=== PATIENT | female | born 1995 | race Caucasian/White ===

== ENCOUNTER → 2021-08-14 09:55 | Outpatient (BNVA) | payer OTHER, SELFPAY | PROVIDERS: PCP Internal Medicine; Visit Provider Nurse Practitioner Family | DX: G93.1 Anoxic brain damage, not elsewhere classified (principal); S06.9X9S Unspecified intracranial injury with loss of consciousness of unspecified duration, sequela; F02.80 Dementia in other diseases classified elsewhere, unspecified severity, without behavioral disturbance, psychotic disturbance, mood disturbance, and anxiety; R25.2 Cramp and spasm; R51.9 Headache, unspecified | CPT/HCPCS: 99212 ==

== ENCOUNTER → 2022-02-12 08:49 | Outpatient (BNVA) | payer OTHER, SELFPAY | PROVIDERS: PCP Internal Medicine; Visit Provider Nurse Practitioner Family | DX: R25.2 Cramp and spasm (principal); G93.1 Anoxic brain damage, not elsewhere classified; S06.9X9S Unspecified intracranial injury with loss of consciousness of unspecified duration, sequela; F02.80 Dementia in other diseases classified elsewhere, unspecified severity, without behavioral disturbance, psychotic disturbance, mood disturbance, and anxiety; Z79.899 Other long term (current) drug therapy | CPT/HCPCS: 99212 ==

== ENCOUNTER → 2022-06-21 07:38 | Outpatient (BNVA) | payer OTHER, SELFPAY | PROVIDERS: PCP Internal Medicine; Visit Provider Nurse Practitioner Family | DX: G93.1 Anoxic brain damage, not elsewhere classified (principal); S06.9XAS Unspecified intracranial injury with loss of consciousness status unknown, sequela; F02.80 Dementia in other diseases classified elsewhere, unspecified severity, without behavioral disturbance, psychotic disturbance, mood disturbance, and anxiety; X58.XXXS Exposure to other specified factors, sequela; R25.2 Cramp and spasm | CPT/HCPCS: 99212 ==

== ENCOUNTER → 2022-12-20 07:40 | Outpatient (BNVA) | payer OTHER, SELFPAY | PROVIDERS: PCP Physician Assistant; Visit Provider Nurse Practitioner Family | DX: G93.1 Anoxic brain damage, not elsewhere classified (principal); R25.2 Cramp and spasm; S06.9X9S Unspecified intracranial injury with loss of consciousness of unspecified duration, sequela; F02.80 Dementia in other diseases classified elsewhere, unspecified severity, without behavioral disturbance, psychotic disturbance, mood disturbance, and anxiety | CPT/HCPCS: 99212 ==

== ENCOUNTER 2022-12-20 07:45 | Outpatient (AMB) | payer OTHER, SELFPAY ==
[2022-12-20 07:45] VITALS: BP 110/66; PULSE 90; O2SAT 100
--- NOTE | 2022-12-20 07:45 | MHC.OFFVIS ---
Intake Vital Signs 12/20/22 07:45 Height 5 ft 2 in BMI Reason not done Patient refused/unable BP 110/66 Blood Pressure Location Rt brachial Position Sitting Pulse 90 Pulse Source Pulse Oximeter Pulse Oximetry (%) 100 Oxygen Delivery Method Room Air Intake Visit Reasons: 6m Follow up - Confirmed Intake Note: Pt presents as a 6m f/u. The guardian and director case management have a meeting this week If she can make a letter to help get a different wheel chair. When asked how pt is feeling she stated sometimes just the back pain. Cullet Crusher Required: No Accompanied by: Mother Allergies No Known Allergies Allergy (Verified 12/20/22 07:54) Medication List - Last Reconciled 12/20/22 by RITA Roque cholecalciferol (vitamin D3) 25 mcg PO DAILY docusate sodium 100 mg PO BID ketoconazole 2% topical 2XW mometasone 0.1% topical multivitamin 1 tab PO DAILY naproxen (EC-Naproxen) 500 mg PO BID PRN onabotulinumtoxinA (Botox) IM [id number] pregabalin 25 mg PO TID 30 days spironolactone 100 mg PO DAILY tizanidine 1 cap bid and 2 caps qhs orally PRN; HPI HPI Comments History of Present Illness Details 27-yr-old female presents for f/u visit. Pt denies any significant interval medical changes. Pt reports her right hand is healing well. She is working w/ PT still. She has increased ability to do some ADLs herself. She continues to have intermittent RUE spasms- which can make it difficult to eat at times. She is not intersted in increasing her Tizanidine at this time. Her botox was held as she had the surgery. She is scheduled for left hand repair in January. She continues to have intermittent back pain. Pregabalin helps- she does not want to try increasing at this time. She does have a PT that does walking and stretching w/ her- but notes she has not mentioned the back pain to this PT. She is hoping to be able to be fitted for a new transport chair that will fit better and allow her to be transported over a variety of surfaces (such as the uneven surface of a grassy park field), as her current transport chair is starting to fail. [facility] Medical History DVT (deep vein thrombosis) in Surgical History Hx of hand surgery Hx of tracheostomy Social History (Updated 12/20/22 @ 07:56 by Lea Alejandra CMA) Alcohol intake: never Patient Tobacco Use Status: Never used Tobacco Review of Systems Const All systems reviewed & are unremarkable except as noted in HPI and below Physical Exam Vital Signs: Last Vital Signs Pulse 90 12/20/22 07:45 BP 110/66 12/20/22 07:45 Pulse Ox 100 12/20/22 07:45 Oxygen Delivery Method Room Air 12/20/22 07:45 Const General: cooperative and no acute distress HEENT Head: Yes normocephalic Resp Effort & Inspection: normal respiratory effort and able to speak in complete sentences Neuro Other: Right forearm/hand increased finger ROM. LUE hand contracture with MCPs raised and fingers postured in extension. Speech soft. Speech clear today. Sitting upright in w/c. General: patient oriented x3 and CN's II-XI intact bilaterally Psych Appearance: grossly normal Speech and movement: Clear speech present Affect: normal affect Attitude: cooperative Assessment & Plan Assessment & Plan (1) Anoxic brain injury: Code(s): G93.1 - Anoxic brain damage, not elsewhere classified (2) Spasticity: Code(s): R25.2 - Cramp and spasm (3) Major neurocognitive disorder due to traumatic brain injury: Code(s): S06.9X9S - Unspecified intracranial injury with loss of consciousness of unspecified duration, sequela; F02.80 - Dementia in other diseases classified elsewhere, unspecified severity, without behavioral disturbance, psychotic disturbance, mood disturbance, and anxiety Plan Pt would benefit from being fitted with for a new transport wheel chair with larger wheels, which would allow pt to access a variety of locations including locations with uneven surfaces (such as the park, grassy [place]). Pt would also benefit from having the transport chair having longer arm rests, longer seat back, deeper seat, and cushioned back and seat, which would better accommodate pt's proportions to improve pt's overall quality life by improving pt's comfort level, decreasing pt's back pain, and allowing pt to spend more time in outdoor settings. Continue Tizanidine 2mg bid and 4mg qhs. Continue Pregabalin 25mg tid. F/u w/ ortho as scheduled. Continue day program. Future considerations: PT specifically for back pain,. Revisit trialing the Baclofen pump to better manage her spasticity symptoms. f/u in 6 months or sooner prn. Coding Level of Care Code Est Pt Level 4 (40290) Diagnoses Anoxic brain injury G93.1 Spasticity R25.2 Major neurocognitive disorder due to traumatic brain injury S06.9X9S; F02.80
== END 2022-12-20 08:39 | disposition home or self-care (01) ==
PROVIDERS: PCP Physician Assistant; Visit Provider Nurse Practitioner Family
DX: G93.1 Anoxic brain damage, not elsewhere classified (principal); R25.2 Cramp and spasm; S06.9X9S Unspecified intracranial injury with loss of consciousness of unspecified duration, sequela; F02.80 Dementia in other diseases classified elsewhere, unspecified severity, without behavioral disturbance, psychotic disturbance, mood disturbance, and anxiety
CPT/HCPCS: 99214

== ENCOUNTER → 2023-06-19 07:35 | Outpatient (BNVA) | payer OTHER, SELFPAY | PROVIDERS: PCP Physician Assistant; Visit Provider Nurse Practitioner Family | DX: F32.A Depression, unspecified (principal); F02.80 Dementia in other diseases classified elsewhere, unspecified severity, without behavioral disturbance, psychotic disturbance, mood disturbance, and anxiety; R25.2 Cramp and spasm; R51.9 Headache, unspecified; G93.1 Anoxic brain damage, not elsewhere classified; S06.9X9S Unspecified intracranial injury with loss of consciousness of unspecified duration, sequela | CPT/HCPCS: 99212 ==

== ENCOUNTER 2023-10-21 07:27 | Outpatient (AMB) | payer OTHER, SELFPAY ==
--- NOTE | 2023-10-21 07:44 | MHC.OFFVIS ---
Vital Signs 10/21/23 07:50 Height 5 ft 2 in Pulse 83 Pulse Source Pulse Oximeter Pulse Oximetry (%) 100 Oxygen Delivery Method Room Air Intake Visit Reasons: 4m follow up-CONF Intake Note: Patient presents for 4 month follow up. no concerns today. Allergies No Known Allergies Allergy (Verified 10/21/23 07:50) Medication List - Last Reconciled 10/21/23 by RITA Roque cholecalciferol (vitamin D3) 25 mcg PO DAILY docusate sodium 100 mg PO BID ketoconazole 2% topical 2XW mometasone 0.1% topical multivitamin 1 tab PO DAILY naproxen (EC-Naproxen) 500 mg PO BID PRN onabotulinumtoxinA (Botox) IM [id number] pregabalin 25 mg PO TID 30 days spironolactone 100 mg PO DAILY tizanidine 1 cap bid and 2 caps qhs orally PRN; HPI Comments Details: 28-yr-old female presents for f/u visit. Pt denies any significant interval medical changes. Pt reports her mood is better. Her day program moved to a new location, which is bigger. This now allows her to move around more, so she is more comfortable there. She had Right hand Botox tx last week in [place]- as right 2nd finger was too extended. This has been helpful. She is working w/ hand therapist and is starting to use adaptive equipment to help feed herself. Mom notes she is a bit hesitant to feed herself, as she does not want to make a mess. Her spasms are stable,. States only increased when she is upset or stressed. Has occasional headaches. Feels like a weight on her head a/w some photophobia and osmophobia. Tylenol helps. PFSH Surgical History Hx of hand surgery Hx of tracheostomy Social History Alcohol intake: never Patient Tobacco Use Status: Never used Tobacco Review of Systems Const All systems reviewed & are unremarkable except as noted in HPI and below Physical Exam Vital Signs: Last Vital Signs Pulse 83 10/21/23 07:50 Pulse Ox 100 10/21/23 07:50 Oxygen Delivery Method Room Air 10/21/23 07:50 Const General: cooperative and no acute distress HEENT Head: Yes normocephalic Resp Effort & Inspection: normal respiratory effort and able to speak in complete sentences Neuro Other: A&O, responding appropriately. Improved hand and wrist range of motion- still has lucy finger flexion. Pt can know hold hands together w/ fingers interlaced. Sitting upright in w/c. Pleasant affect. Psych Appearance: grossly normal Affect: normal affect Attitude: cooperative Assessment & Plan Assessment & Plan (1) Spasticity: Code(s): R25.2 - Cramp and spasm Category: Medical (2) Major neurocognitive disorder due to traumatic brain injury: Code(s): S06.9X9S - Unspecified intracranial injury with loss of consciousness of unspecified duration, sequela; F02.80 - Dementia in other diseases classified elsewhere, unspecified severity, without behavioral disturbance, psychotic disturbance, mood disturbance, and anxiety Category: Medical (3) Anoxic brain injury: Code(s): G93.1 - Anoxic brain damage, not elsewhere classified Category: Medical (4) Headache: Code(s): R51.9 - Headache, unspecified Category: Medical (5) Depression: Comment: Imporved Code(s): F32.A - Depression, unspecified Category: Medical (6) Migraine without aura: Code(s): G43.009 - Migraine without aura, not intractable, without status migrainosus Category: Medical Plan Mood is improved. Pt and mom do not feel therpay is needed at this time. Will monitor. Future considerations- SSRI, tehrapy. ? Continue Tizanidine 2mg bid and 4mg qhs. Continue Pregabalin 25mg tid. Continue hand tx. Encouraged pt to use her hands as much as possible- use the adaptive equipment- mom plans to obtain a set for home. F/u w/ ortho as scheduled. Future considerations: Revisit Baclofen pump to better manage her spasticity symptoms. For headache: Tylenol prn. If Tylenol loses effectiveness, consider gepant trial. Would be hesitant to use Triptan in setting of h/o hypoxic brain injury. ? f/u in 6 months or sooner prn. Coding Level of Care Code Est Pt Level 4 (22045) Diagnoses Spasticity R25.2 Major neurocognitive disorder due to traumatic brain injury S06.9X9S; F02.80 Anoxic brain injury G93.1 Headache R51.9 Depression F32.A Migraine without aura G43.009
[2023-10-21 07:50] VITALS: PULSE 83; O2SAT 100
== END 2023-10-21 08:29 | disposition home or self-care (01) ==
PROVIDERS: PCP Physician Assistant; Visit Provider Nurse Practitioner Family
DX: R25.2 Cramp and spasm (principal); S06.9X9S Unspecified intracranial injury with loss of consciousness of unspecified duration, sequela; F02.80 Dementia in other diseases classified elsewhere, unspecified severity, without behavioral disturbance, psychotic disturbance, mood disturbance, and anxiety; G93.1 Anoxic brain damage, not elsewhere classified; R51.9 Headache, unspecified; F32.A Depression, unspecified; G43.009 Migraine without aura, not intractable, without status migrainosus
CPT/HCPCS: 99214

== ENCOUNTER → 2023-10-21 07:27 | Outpatient (BNVA) | payer OTHER, SELFPAY | PROVIDERS: PCP Physician Assistant; Visit Provider Nurse Practitioner Family | DX: R25.2 Cramp and spasm (principal); G93.1 Anoxic brain damage, not elsewhere classified; R51.9 Headache, unspecified; F32.A Depression, unspecified; G43.009 Migraine without aura, not intractable, without status migrainosus; S06.9X9S Unspecified intracranial injury with loss of consciousness of unspecified duration, sequela; F02.80 Dementia in other diseases classified elsewhere, unspecified severity, without behavioral disturbance, psychotic disturbance, mood disturbance, and anxiety | CPT/HCPCS: 99212 ==

== ENCOUNTER 2023-11-25 12:29 | Outpatient (AMB) | payer OTHER, SELFPAY ==
--- NOTE | 2023-11-25 12:46 | MHC.OFFVIS ---
Vital Signs 11/25/23 12:46 Height 5 ft 2 in Intake Visit Reasons: Follow Up Intake Note: Patient presents for follow up. patient following up on some concerns. Allergies No Known Allergies Allergy (Verified 11/25/23 12:52) Medication List - Last Reconciled 11/25/23 by RITA Roque cholecalciferol (vitamin D3) 25 mcg PO DAILY docusate sodium 100 mg PO BID ketoconazole 2% topical 2XW mometasone 0.1% topical multivitamin 1 tab PO DAILY naproxen (EC-Naproxen) 500 mg PO BID PRN onabotulinumtoxinA (Botox) IM [id number] pregabalin 25 mg PO TID 30 days spironolactone 100 mg PO DAILY tizanidine 1 cap bid and 2 caps qhs orally PRN; HPI Comments Details: 28-yr-old female presents for urgent f/u visit, requested by pt's mother. Pt's mother called and reported that pt has been confused, hallucinating, and having episodes of yelling loudly. Deisy pt is convinced that people at her longterm are using drugs and stealing from her, but that this is not happening. PCP's office started her on hydralazine bid two weeks ago, but this has not helped. Visit initially conducted with pt alone with presence of our diagnostic medical sonographer. Pt is very tearful, sobbing at times, having difficulty talking. In time, pt verbalized that no one believes her because she has had a head injury. She reports she is concerned about her day program- she states that some but the majority of the staff are inviting their friends into the facility, and vaping. She states the staff then become jittery and then leave for a few minutes, but then come back. She feels the perl programmer becomes loopy because he is exposed to the residual smoke in the air from the vaping. She believes the staff have damaged the cameras. She believes they are vaping methadone. She feels that she has felt loopy herself after this exposure. She denies feeling unsafe in the program or that anyone is physically harming her. She states she does not let anyone touch her at the program. Pt is also concerned about her mother. She states that her mother does not believe her about her concerns regarding the program. She also states that her mother has a new male friend who visits over the last few months- she does not care for him. She states her mother does not ask her how her day was at the program. She states once home, she just spends time by herself. She denies feeling unsafe at home. States no one is hurting her at home. Pt denies any recent fevers, headaches, body aches. [employer]. [facility] Surgical History Hx of hand surgery Hx of tracheostomy Social History Alcohol intake: never Patient Tobacco Use Status: Never used Tobacco Review of Systems Const All systems reviewed & are unremarkable except as noted in HPI and below Physical Exam Const General: cooperative and no acute distress Resp Effort & Inspection: normal respiratory effort and able to speak in complete sentences Neuro Other: A&O. Sad, weepy. Consistent in responses. Improved hand and wrist range of motion- still has lucy finger flexion.. Sitting upright in w/c. General: CN's II-XI intact bilaterally Psych Appearance: grossly normal Mental Status: mental status grossly normal Speech and movement: Normal speech and movement present Affect: normal affect Attitude: cooperative Assessment & Plan Assessment & Plan (1) Mood changes: Code(s): R45.86 - Emotional lability Category: Medical (2) Depression: Comment: Improved. Pt currently denies depression. Code(s): F32.A - Depression, unspecified Category: Medical (3) Anoxic brain injury: Code(s): G93.1 - Anoxic brain damage, not elsewhere classified Category: Medical (4) Major neurocognitive disorder due to traumatic brain injury: Code(s): S06.9X9S - Unspecified intracranial injury with loss of consciousness of unspecified duration, sequela; F02.80 - Dementia in other diseases classified elsewhere, unspecified severity, without behavioral disturbance, psychotic disturbance, mood disturbance, and anxiety Category: Medical (5) Anoxic brain injury: Code(s): G93.1 - Anoxic brain damage, not elsewhere classified Category: Medical (6) Major neurocognitive disorder due to traumatic brain injury: Code(s): S06.9X9S - Unspecified intracranial injury with loss of consciousness of unspecified duration, sequela; F02.80 - Dementia in other diseases classified elsewhere, unspecified severity, without behavioral disturbance, psychotic disturbance, mood disturbance, and anxiety Category: Medical Plan Will check labs, brain MRI w/wo, EEG for secondary etiologies of mood and behavior changes. Will refer to psychiatry and psychology. Order written for escitalopram 5mg qd- may help pt's mood liability- pt is hesitant to try this as she is worried it will make her not herself- but states she will consider trying it. However, discussed w/ pt and mother that we would need to f/u on pt's concerns regarding her day program. Pt asks that the day program not be made aware that pt has made a complaint. Message was also left today for pt's guardian, Esther. This freelance writer contacted [facility], who provided information for pt's care nurse rn, Brenden Castro. This freelance writer updated care nurse rn via phone regarding pt's concerns and today's visit. She stated that she will f/u w/ her supervisior and also plan for an unannounced spot check of pt's day program- and update us afterwards. international logistics coordinator, Brenden CastroPhone ) (note pt will have a new care nurse rn in/around Dec 2023). Orders: Orders Complete Blood Count Auto Diff Today F32.A - Depression, unspecified, R25.2 - Cramp and spasm, R42 - Dizziness and giddiness, R45.86 - Emotional lability, R51.9 - Headache, unspecified HIV Ab/Ag Today F32.A - Depression, unspecified, R25.2 - Cramp and spasm, R42 - Dizziness and giddiness, R45.86 - Emotional lability, R51.9 - Headache, unspecified MR head/brain wo/w con Today G93.1 - Anoxic brain damage, not elsewhere classified, R42 - Dizziness and giddiness, R44.3 - Hallucinations, unspecified, R51.9 - Headache, unspecified AMB 14 Panel Urine Drug Screen Today Z51.81 - Encounter for therapeutic drug level monitoring EEG electroencephalogram Today F02.80 - Dementia in other diseases classified elsewhere, unspecified severity, without behavioral disturbance, psychotic disturbance, mood disturbance, and anxiety, G93.1 - Anoxic brain damage, not elsewhere classified, R44.3 - Hallucinations, unspecified, S06.9X9S - Unspecified intracranial injury with loss of consciousness of unspecified duration, sequela Folate Today R42 - Dizziness and giddiness, R44.3 - Hallucinations, unspecified, R51.9 - Headache, unspecified Comprehensive Met. Panel Today F32.A - Depression, unspecified, R25.2 - Cramp and spasm, R42 - Dizziness and giddiness, R45.86 - Emotional lability, R51.9 - Headache, unspecified TSH reflex Free T4 Today F32.A - Depression, unspecified, R25.2 - Cramp and spasm, R42 - Dizziness and giddiness, R45.86 - Emotional lability, R51.9 - Headache, unspecified Vitamin B12 and Folate Today F32.A - Depression, unspecified, R25.2 - Cramp and spasm, R42 - Dizziness and giddiness, R45.86 - Emotional lability, R51.9 - Headache, unspecified Methylmalonic Acid Today F32.A - Depression, unspecified, R25.2 - Cramp and spasm, R42 - Dizziness and giddiness, R45.86 - Emotional lability, R51.9 - Headache, unspecified Homocysteine Today F32.A - Depression, unspecified, R25.2 - Cramp and spasm, R42 - Dizziness and giddiness, R45.86 - Emotional lability, R51.9 - Headache, unspecified Erythrocyte Sedimentation Rate Today F32.A - Depression, unspecified, R25.2 - Cramp and spasm, R42 - Dizziness and giddiness, R45.86 - Emotional lability, R51.9 - Headache, unspecified Hemoglobin A1c Today F32.A - Depression, unspecified, R25.2 - Cramp and spasm, R42 - Dizziness and giddiness, R45.86 - Emotional lability, R51.9 - Headache, unspecified Rheumatoid Factor Today F32.A - Depression, unspecified, R25.2 - Cramp and spasm, R42 - Dizziness and giddiness, R45.86 - Emotional lability, R51.9 - Headache, unspecified Syphilis Screen Today F32.A - Depression, unspecified, R25.2 - Cramp and spasm, R42 - Dizziness and giddiness, R45.86 - Emotional lability, R51.9 - Headache, unspecified CRP High Sensitivity Today F32.A - Depression, unspecified, R25.2 - Cramp and spasm, R42 - Dizziness and giddiness, R45.86 - Emotional lability, R51.9 - Headache, unspecified UA CC w/rflx Micro + Cult Today F32.A - Depression, unspecified, R25.2 - Cramp and spasm, R42 - Dizziness and giddiness, R45.86 - Emotional lability, R51.9 - Headache, unspecified Referrals Psychiatry Referral F02.80 - Dementia in other diseases classified elsewhere, unspecified severity, without behavioral disturbance, psychotic disturbance, mood disturbance, and anxiety, F32.A - Depression, unspecified, G93.1 - Anoxic brain damage, not elsewhere classified, R44.3 - Hallucinations, unspecified, R45.86 - Emotional lability, S06.9X9S - Unspecified intracranial injury with loss of consciousness of unspecified duration, sequela Medications: New escitalopram oxalate 5 mg PO DAILY 30 tabs 3RF 30 days Coding Level of Care Code Est Pt Level 4 (44650) Diagnoses Mood changes R45.86 Depression F32.A Anoxic brain injury G93.1 Major neurocognitive disorder due to traumatic brain injury S06.9X9S; F02.80
== END 2023-11-25 14:01 | disposition home or self-care (01) ==
PROVIDERS: PCP Physician Assistant; Visit Provider Nurse Practitioner Family
DX: R45.86 Emotional lability (principal); F32.A Depression, unspecified; G93.1 Anoxic brain damage, not elsewhere classified; S06.9X9S Unspecified intracranial injury with loss of consciousness of unspecified duration, sequela; F02.80 Dementia in other diseases classified elsewhere, unspecified severity, without behavioral disturbance, psychotic disturbance, mood disturbance, and anxiety
CPT/HCPCS: 99214

== ENCOUNTER → 2023-11-25 12:29 | Outpatient (BNVA) | payer OTHER, SELFPAY | PROVIDERS: PCP Physician Assistant; Visit Provider Nurse Practitioner Family | DX: R45.86 Emotional lability (principal); F32.A Depression, unspecified; G93.1 Anoxic brain damage, not elsewhere classified; S06.9X9S Unspecified intracranial injury with loss of consciousness of unspecified duration, sequela; F02.80 Dementia in other diseases classified elsewhere, unspecified severity, without behavioral disturbance, psychotic disturbance, mood disturbance, and anxiety | CPT/HCPCS: 99212 ==

== ENCOUNTER 2024-05-15 07:42 | Outpatient (AMB) | payer OTHER, SELFPAY ==
[2024-05-15 07:56] VITALS: BP 100/60; PULSE 87; O2SAT 100; BMI 22.9
--- NOTE | 2024-05-15 07:56 | A.OFFVIS_ITS ---
Vital Signs 05/15/24 07:56 Height 5 ft 2 in Weight 125 lb BMI 22.9 BP 100/60 Blood Pressure Location Rt brachial Position Sitting Pulse 87 Pulse Oximetry (%) 100 Oxygen Delivery Method Room Air Intake Visit Reasons: Follow up Beer Cooler Required: No Accompanied by: Mother Allergies No Known Allergies Allergy (Verified 05/15/24 08:01) Do you need a note to return to daycare/school/sports/work: No HPI Comments Details: 29-yr-old female presents for urgent f/u of spasticity and headache in setting of TBI. Pt is accompanied by her mother. Overall, patient and patient's mother state that she is doing much better. Her mood is much better since starting escitalopram and hydroxyzine. She continues to go to her program. She has a new shelter case manager. Pt has been doing PT for her hands. Dr Fowler, at [facility], held the last hand botox injection until pt can be fitted for nocturnal braces. Dr fowler has given her a prescription for nocturnal hand braces. Mom plans to give the splint order to her PT. Denies any bothersome muscle spasms. But mom states she can have some hand spasms when eating. Mom had tried giving her tizanidine at 2am, to help with eating breakfast but it made her too sleepy during the day. She is having mild headaches about twice a week, and a strong headache once a month. The mild headache moves up from her neck and moves up the back of her head a/w difficulty moving her head and sleepiness. States duration is not too long . The more severe headache is similar but it is stronger and mom states she just wants everything to be shut down and rest. Naproxen does not seem to eb helping anymore. She has also started [facility] eval & tx. They have referred her to ENT- has an appt in the summer. PFSH Surgical History Hx of hand surgery Hx of tracheostomy Social History Alcohol intake: never Patient Tobacco Use Status: Never used Tobacco Physical Exam Vital Signs: Last Vital Signs Pulse 87 05/15/24 07:56 BP 100/60 05/15/24 07:56 Pulse Ox 100 05/15/24 07:56 Oxygen Delivery Method Room Air 01/03/25 07:56 BMI result Body Mass Index 22.9 Const General: cooperative and no acute distress Resp Effort & Inspection: normal respiratory effort and able to speak in complete sentences Neuro Other: A&O. Improved hand and wrist range of motion- lucy finger flexion.. Sitting upright in w/c. General: CN's II-XI intact bilaterally Psych Appearance: grossly normal Speech and movement: Normal speech and movement present Affect: normal affect Attitude: cooperative Assessment & Plan Assessment & Plan (1) Depression: Comment: Improved. Pt currently denies depression. Code(s): F32.A - Depression, unspecified Category: Medical (2) Anoxic brain injury: Code(s): G93.1 - Anoxic brain damage, not elsewhere classified Category: Medical (3) Major neurocognitive disorder due to traumatic brain injury: Code(s): S06.9X9S - Unspecified intracranial injury with loss of consciousness of unspecified duration, sequela; F02.80 - Dementia in other diseases classified elsewhere, unspecified severity, without behavioral disturbance, psychotic disturbance, mood disturbance, and anxiety Category: Medical (4) Major neurocognitive disorder due to traumatic brain injury: Code(s): S06.9X9S - Unspecified intracranial injury with loss of consciousness of unspecified duration, sequela; F02.80 - Dementia in other diseases classified elsewhere, unspecified severity, without behavioral disturbance, psychotic disturbance, mood disturbance, and anxiety Category: Medical (5) Migraine without aura: Code(s): G43.009 - Migraine without aura, not intractable, without status migrainosus Category: Medical Plan For mood: Reviewed 12/13/2023 brain MRI w/wo,-no acute findings, and global parenchymal volume loss and compensatory ventricular dilation, greater than expected for patient age. Reviewed 11/15/2023 EEG-unremarkable. Reviewed November labs-unremarkable. Continue escitalopram 5mg qd- as patient has had positive effect in terms of mood from use. Continue supportive care, day program. For headache: Start diclofenac 50 mg p.o. b.i.d. p.r.n. For spasticity: Continue pregabalin 25 mg p.o. t.i.d.. Will follow-up upon review of above and patient to follow-up in clinic in 6 months or sooner prn. Medications: New diclofenac potassium 50 mg PO Q12H PRN 30 tabs 6RF headache 30 days Refilled pregabalin 25 mg PO TID 90 caps 5RF 30 days escitalopram oxalate 5 mg PO DAILY 30 tabs 6RF 30 days Coding Level of Care Code Est Pt Level 4 (21416) Diagnoses Depression F32.A Anoxic brain injury G93.1 Major neurocognitive disorder due to traumatic brain injury S06.9X9S; F02.80 Migraine without aura G43.009
== END 2024-05-15 08:47 | disposition home or self-care (01) ==
PROVIDERS: PCP Physician Assistant; Visit Provider Nurse Practitioner Family
DX: F32.A Depression, unspecified (principal); G93.1 Anoxic brain damage, not elsewhere classified; S06.9X9S Unspecified intracranial injury with loss of consciousness of unspecified duration, sequela; F02.80 Dementia in other diseases classified elsewhere, unspecified severity, without behavioral disturbance, psychotic disturbance, mood disturbance, and anxiety; G43.009 Migraine without aura, not intractable, without status migrainosus
CPT/HCPCS: 99214

== ENCOUNTER 2024-11-24 07:43 | Outpatient (AMB) | payer OTHER, SELFPAY ==
--- OUTSIDE RECORDS SUMMARY | 2024-11-24 07:46 | XMS_ITS | Clinical Summary ---
Author Organization [facility] Address [address] [place] [address] Phone Care Team Providers Care Gas Attendant Name Role Phone Melony Tafoya Primary Care Provider + Allergies No known active allergies Medications hydrOXYzine HCL (ATARAX) 10 mg tablet Take 1 tablet (10 mg total) by mouth 3 (three) times a day. 270 tablet 1 5 Active Vitamin D3 25 mcg (1,000 unit) tablet Take 1 tablet (1,000 Units total) by mouth 1 (one) time each day. 90 tablet 3 5 Active escitalopram (LEXAPRO) 5 mg tablet Take 1 tablet (5 mg total) by mouth 1 (one) time each day. for 30 days Active pregabalin (LYRICA) 25 mg capsule Take 1 capsule (25 mg total) by mouth 3 (three) times a day. Max Daily Amount: 75 mg Active spironolactone (ALDACTONE) 50 mg tablet Take 1 tablet (50 mg total) by mouth 1 (one) time each day. 5 Active diclofenac (CATAFLAM) 50 mg tablet Take 1 tablet (50 mg total) by mouth 2 (two) times a day if needed (headaches). 5 Active tiZANidine (ZANAFLEX) 2 mg tablet TAKE 2 TABLETS BY MOUTH EVERY MORNING, 1 TABLET AT NOON AND 2 TABLETS EVERY EVENING NEEDED Active docusate sodium (COLACE) 100 mg capsule Take 1 capsule (100 mg total) by mouth 2 (two) times a day if needed. for constipation Active Active Problems Problem Noted Date Diagnosed Date Anoxic brain injury ([facility] V24, [facility] V28) 0 10/01/2024 Overview (10/01/2024): DX:Anoxic brain injury (HCC) Upcoming neuropsych evaluation Spastic quadriparesis ([facility] V24, [facility] V28) 10/01/2024 Overview (10/01/2024): Receiving botox therapy to all four extremities OT twice weekly PT twice weekly Enrolled in Service [employer] Program Deep vein thrombosis (DVT) ([facility] V24, [facility] V28) 10/01/2024 Traumatic brain injury ([facility] V24, [facility] V28 ) 10/01/2024 Dysmenorrhea 10/18/2022 Overview (10/01/2024): Last Assessment & Plan: We reviewed treatment options for dysmenorrhea including non-contraceptive benefits of hormonal contraception. Patient has history of DVT, therefore is not a candidate for COCs. We reviewed progestin-only options and common side effects of each. She is most interested in POPs. Pt counseled on expectations for irregular menstrual bleeding with use of POPs. All questions answered. Rx provided today. 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 02/12 Intrinsic muscle tightness 04/23/2021 Spasticity as late effect of cerebrovascular acc ident (CVA) 04/23/2021 Wheelchair dependence 10/17/2016 Acne 06/01/2014 Constipation 06/01/2014 Neurogenic bladder Overview (08/25/2024): DX:Neurogenic bladder Migraines Anxiety Hirsutism Encounters Date Type Department Care Team Description 10/13/2024 Telephone Internal Medicine - [address] [place] [address] Melony Tafoya PA DME(bed rails) 09/07/2024 Telephone Internal Medicine - [place] [address] [place] [address] Evelyne Richard MA Referral 08/25/2024 1:30 PM EDT Office Visit Internal Medicine [facility] [address] [facility] [address] [place] [address] Melony Tafoya PA Migraine without status migrainosus, not intractable, unspecified migraine type (Primary Dx); Spastic quadriplegia ([facility] V24, [facility] V28); Anxiety; Health care maintenance from Last 3 Months Surgical History Surgery Date Site/Laterality Comments OTHER SURGICAL HISTORY PROCEDURE: TRACHEOSTOMY INNER CANNULA OTHER SURGICAL HISTORY PROCEDURE: [place] EGD PERCUTANEOUS PLACEMENT GASTROSTOMY TUBE HAND SURGERY Right PROCEDURE: HISTORICAL HAND SURGERY Medical History Medical History Date Comments Anoxic brain injury ([facility] V24, [facility] V28) 10/01/2024 DX:Anoxic brain injury (HCC) DVT femoral (deep venous thr ombosis) with thrombophlebitis (CMS/HCC V24, CMS/HCC V28) DX:DVT femoral (deep venous thrombosis) with thrombophlebitis (HCC) Neurogenic bladder DX:Neurogenic bladder Migraines Spastic quadriplegia (CMS/ C V24, [facility] V28) Anxiety Hirsutism Family History Medical History Relation Name Comments Heart attack Maternal Grandfather Breast cancer Maternal Grandmother Breast cancer Other Mat cousin Colon cancer Uncle 1 maternal Colon cancer Uncle 2 maternal x2 Blindness Neg Hx Cataracts Neg Hx Cervical cancer Neg Hx Glaucoma Neg Hx Macular degeneration Neg Hx Ovarian cancer Neg Hx Prostate cancer Neg Hx Strabismus Neg Hx Relation Name Status Comments Father Alive Maternal Grandfather Maternal Grandmother Mother Alive Other Mat cousin Alive Uncle 1 Uncle 2 Social History Tobacco Use Types Packs/Day Years Used Date Smoking Tobacco: Never Smokeless Tobacco: Never Alcohol Use Standard Drinks/Week Comments No 0 (1 standard drink = 0.6 oz pur e alcohol) Housing Instability Answer Date Recorde d Are you worried that in the next 2 months you may not have stable housing? No 08/18/2024 Food Access & Nutrition Answer Date Rec orded Do you have access to a vari ety of food including fruits and vegetables? Yes 08/18/2024 Access to Healthcare Answer Date Record ed Within the last 3 months, ho w many times did you visit the emergency department for your medical care? 0 08/18/2024 Health Literacy Answer Date Recorded How often do you need to hav e someone help you when you read instructions, pamphlets, or other written material from your doctor or pharmacy? Always 08/18/2024 Caregiver: How often do you need to have someone help you when you read instructions, pamphlets, or other written material from your doctor or pharmacy? Not on file 08/18/2024 Transportation Answer Date Recorded Has the lack of transportati on kept you from meetings, work, or from getting things needed for daily living? No Has the lack of transportati on kept you from medical appointments or from getting medications? No 08/18/2024 Social Isolation Answer Date Recorded How often do you feel lonely or isolated from th ose around you? Never 08/18/2024 Food Risk Answer Date Recorded Within the past 12 months we worried whether our food would run out before we got money to buy more. Never true 08/18/2024 Within the past 12 months th e food we bought just didn't last and we didn't have money to get more. Never true 08/18/2024 Dependent Care Answer Date Recorded Do you need help finding or paying for care for your loved ones. For example, children's service worker or elderly care for an older adult? No 08/18/2024 Education Answer Date Recorded Do you think completing more education or training, like finishing a GED, going to college, or learning a trade, would be helpful for you? Unable to respond 08/18/2024 Employment and Income Answer Date Recor ded During the last four weeks, have you been actively looking for work? No 08/18/2024 Living Situation Answer Date Recorded What is your living situation? 0 08/18/2024 Comments No Sex and Gender Information Value Date Recorded Sex Assigned at Not on file Legal Sex Female 8:29 AM EST Gender Identity Not on file Sexual Orientation Not on file Obstetrics History Last Filed Vital Signs Vital Sign Reading Time Taken Comments Blood Pressure 100/62 08/25/2024 1:06 PM EDT Pulse 76 08/25/2024 1:06 PM EDT Temperature 36.6 C (97.8 F) 08/25/2024 1:06 PM EDT Respiratory Rate - - Oxygen Saturation 98% 08/25/2024 1:06 PM EDT Inhaled Oxygen Concentration - - Weight 59 kg (130 lb) 08/25/2024 1:06 PM EDT Height 157.5 cm (5' 2 ) 08/25/2024 1:06 PM EDT Body Mass Index 23.78 08/25/2024 1:06 PM EDT Plan of Treatment Upcoming Encounters Date Type Department Care Team (Late st Contact Info) Description 03/16/2025 10:00 AM EST Office Visit Internal Medicine - [place] [address] [place] [address] Melony Tafoya, DORIAN [address] [place] [address] Health Maintenance Due Date Last Done Comments Hepatitis B Vaccines (1 of 3 - 19+ 3-dose series) 02/11/2012 HIV Screening 04/21/2022 Hepatitis C Screening 04/21/2022 COVID-19 Vaccine ( season) 2024 04/05/2021, 07/20/2020, 06/22/2020 DTaP,Tdap,and Td Vaccines (2 - Td or Tdap) 03/01/2024 03/01/2014 Influenza Vaccine (#1) 2025 , 03/11/2023, 02/14/2023, Additional history exists Depression Screening 08/18/2025 08/18/2024 Social Influencers of Health Screening 08/18/2025 08/18/2024 Cervical Cancer Screening: Pap Smear 10/16/2025 10/16/2022, 05/14/2018 Pneumococcal Vaccine: Pediatrics (0 to 5 Years) and At-Risk Patients (6 to 49 Years) Aged Out 06/01/2014 No longer eligible based on patient's age to complete this topic HIB Vaccines Aged Out No longer eligi ble based on patient's age to complete this topic HPV Vaccines Aged Out No longer eligi ble based on patient's age to complete this topic Hepatitis A Vaccines Aged Out No long er eligible based on patient's age to complete this topic IPV Vaccines Aged Out No longer eligi ble based on patient's age to complete this topic MMR Vaccines Aged Out No longer eligi ble based on patient's age to complete this topic Meningococcal ACWY Vaccine Aged Out N o longer eligible based on patient's age to complete this topic Meningococcal B Vaccine Aged Out No l onger eligible based on patient's age to complete this topic RSV Immunization Patients Under 20 months Aged Out No longer eligible based on patient's age to complete this topic Varicella Vaccines Aged Out No longer eligible based on patient's age to complete this topic Procedures Procedure Name Priority Date/Time Associated Diagnosis Comments PAP SMEAR Routine 10/16/2022 from Last 3 Months or Most Recently Relevant to Health Maintenance Results * Pap smear (10/16/2022) 10/16/2022 Narrative HISTORICAL TESTING LAB RESULTING AGENCY - 10/22/2022 10:15 AM EDT [id number] THINPREP PAP, IMAGED: NEGATIVE FOR SQUAMOUS INTRAEPITHELIAL LESION AND MALIGNANCY . GEORGE HAUSER(ASCP) (CASE ELECTRONICALLY SIGNED 10 22 2022) ADEQUACY: SATISFACTORY ENDOCERVICAL/TRANSFORMATION ZONE COMPONENT PRESENT. SOURCE: THINPREP PAP HPV IF ASCUS, CERVICAL, IMAGED CLINICAL INFORMATION: HPV IF DIAGNOSIS OF ASCUS. PAP HX NEGATIVE, [[id number]] Vipul Elizabeth DO LAB CYTOLOGY ORDERABLES Final Result HISTORICAL TESTING LAB RESULTING AGENCY from Last 3 Months or Most Recently Relevant to Health Maintenance Insurance [facility] [employer] Care Teams Gas Attendant Relationship Specialty Start Date End Date Melony Tafoya PA [address] [place] [address] PCP - General 03/11/23
--- OUTSIDE RECORDS SUMMARY | 2024-11-24 07:46 | XMS_ITS | Clinical Summary ---
Author Organization [facility] Address [address] [place], [place] [id number] Phone Care Team Providers Care Allergy Nurse Name Role Phone Nelida Boggs MD Primary Care Pro vider Social History Tobacco Use Types Packs/Day Years Used Date Smoking Tobacco: Never Assessed Comments Unknown Sex and Gender Information Value Date Recorded Sex Assigned at Not on file Legal Sex Female 12:17 PM EST Gender Identity Not on file Sexual Orientation Not on file Last Filed Vital Signs Vital Sign Reading Time Taken Comments Blood Pressure 96/60 09/27/2011 12:00 AM EDT Pulse - - Temperature - - Respiratory Rate - - Oxygen Saturation - - Inhaled Oxygen Concentration - - Weight 55.8 kg (123 lb) 09/27/2011 12:00 AM EDT Height 158.8 cm (5' 2.5 ) 09/27/2011 12:00 AM ED T Body Mass Index 22.14 09/27/2011 12:00 AM EDT Plan of Treatment Health Maintenance Due Date Last Done Comments Varicella Vaccines (2 of 2 - 13+ 2-dose series) 06/01/2013 05/04/2013 DTaP,Tdap,and Td Vaccines (9 - Td or Tdap) 05/04/2023 05/04/2013, 05/04/2013, 09/27/2011, Additional history exists COVID-19 Vaccine ( season) 2024 Influenza Vaccines (#1) 2024 04/13/2009 MMR Vaccines Completed 07/20/1997, 02/12/1994 HPV Vaccines Completed 05/23/2009, 08/2008, 09/14/2008 Meningococcal Vaccine Completed 09/27/2011 , 09/27/2011, 01/14/2009, Additional history exists HIB Vaccines Completed 05/04/2013, 09/1993, 1993, Additional history exists Hepatitis A Vaccines Aged Out 05/04/2013, 05/04/20 13 No longer eligible based on patient's age to complete this topic Hepatitis B Vaccines Completed 05/04/2013, 05/04/2013, 1993, Additional history exists IPV Vaccines Completed 05/04/2013, 04/13, 04/14/1997, Additional history exists Pneumococcal Vaccine Aged Out 05/04/2013, 05/04/20 13 No longer eligible based on patient's age to complete this topic Men B Vaccine Aged Out No longer elig ible based on patient's age to complete this topic Care Teams Allergy Nurse Relationship Specialty Start Date End Date Nelida Boggs MD [address] [place] [id number] PCP - General 07/03/17
[2024-11-24 07:47] VITALS: BP 106/72; PULSE 73; O2SAT 100
--- NOTE | 2024-11-24 07:47 | MHC.OFFVIS ---
Vital Signs 11/24/24 07:47 Height 5 ft 2 in BMI Reason not done Patient refused/unable BP 106/72 Blood Pressure Location Lt brachial Position Sitting Pulse 73 Pulse Source Pulse Oximeter Pulse Oximetry (%) 100 Oxygen Delivery Method Room Air Intake Visit Reasons: Follow Up 6mo Intake Note: Patient presents 6 month follow up for migraines Dairy Manufacturing Technologist Required: No Accompanied by: Mother Allergies No Known Allergies Allergy (Verified 11/24/24 07:50) Do you need a note to return to daycare/school/sports/work: No HPI Comments Details: 29-yr-old female presents for urgent f/u of spasticity and headache in setting of TBI. Pt is accompanied by her mother. Patient's mother state's pt is feeling nervous and anxious again, which is a/w physical tightness. Patient denies depression, but endorses anxiety nervousness. She is compliant with escitalopram and hydroxyzine. Pt is not wanting to go to her day program again- states that there has been staff changes. So more recently, patient has only been going twice a week after her PT/OT/PHARMACEUTICAL OFFICER therapy, however once there she is texting her mom that she wants sleeve. Mother states they have a new skilled nursing case manager, and they have a follow-up meeting in December. She states she is doing PHARMACEUTICAL OFFICER tx but is combined with her OT/PT. Per mother, patient is no longer seeing Dr Oliveros, at [facility], as they are not giving her Botox any longer into her hands. Denies any bothersome muscle spasms. But mom states she can have some hand spasms when eating. Mom had tried giving her tizanidine at 2am, to help with eating breakfast but it made her too sleepy during the day. Patient states he is having a couple of headaches a week a/w photophobia and phonophobia, lasting a few hours. She is asking for everything to be shut down more often. Diclofenac and naproxen are not helpful. PFSH Surgical History Hx of hand surgery Hx of tracheostomy Social History Alcohol intake: never Patient Tobacco Use Status: Never used Tobacco Physical Exam Vital Signs: Last Vital Signs Pulse 73 11/24/24 07:47 BP 106/72 11/24/24 07:47 Pulse Ox 100 11/24/24 07:47 Oxygen Delivery Method Room Air 11/24/24 07:47 Const General: cooperative and no acute distress Resp Effort & Inspection: normal respiratory effort and able to speak in complete sentences Neuro Other: A&O. Mild teariness on and off through visit. Improved hand and wrist range of motion- lucy finger flexion.. Sitting upright in w/c. General: CN's II-XI intact bilaterally Psych Appearance: grossly normal Speech and movement: Normal speech and movement present Affect: normal affect Attitude: cooperative Assessment & Plan Assessment & Plan (1) Anoxic brain injury: Code(s): G93.1 - Anoxic brain damage, not elsewhere classified Category: Medical (2) Major neurocognitive disorder due to traumatic brain injury: Code(s): S06.9X9S - Unspecified intracranial injury with loss of consciousness of unspecified duration, sequela; F02.80 - Dementia in other diseases classified elsewhere, unspecified severity, without behavioral disturbance, psychotic disturbance, mood disturbance, and anxiety Category: Medical (3) Migraine without aura: Code(s): G43.009 - Migraine without aura, not intractable, without status migrainosus Category: Medical (4) Depression: Comment: Improved. Pt currently denies depression. Code(s): F32.A - Depression, unspecified Category: Medical Qualifiers: Depression Type: major depressive disorder Major depression recurrence: recurrent Active/Remission status: in partial remission Qualified Code(s): F33.41 - Major depressive disorder, recurrent, in partial remission Plan For mood: Reviewed 12/13/2023 brain MRI w/wo,-no acute findings, and global parenchymal volume loss and compensatory ventricular dilation, greater than expected for patient age. Reviewed 11/15/2023 EEG-unremarkable. Reviewed November labs-unremarkable. Continue escitalopram 5mg qd. Continue supportive care. Discussed alternates to going to the day program, patient may benefit from doing a program such as volunteering to be a physical therapy patient at 1 of the local [employer]. Or having a monogram operator to do activities with during the day. They will discuss with her skilled nursing case manager at upcoming appointment. For migraine without aura: For acute migraine treatment: Discontinue diclofenac 50 mg p.o. b.i.d. p.r.n. Trial Ubrogepant (Ubrelvy) 100mg tab, 1/2 - 1 tab (50-100mg) at onset of headache, may repeat in 2 hours. Max of 2 tabs (200mg) per 24 hours. May adjunct with OTC Tylenol 650mg q 4 hours, Ibuprofen 600mg q 6 hours, or Naproxen 440mg q 12 hrs prn. Do not take w/ Butalbital (Fioricet or Fiorinal). Potential adverse effects, include but are not limited to fatigue, nausea, dry mouth, constipation Acute migraine treatment contraindications: All triptans and DHE due to history of anoxic brain injury Previous trials: Diclofenac and naproxen ineffective For migraine preventative treatment: Start Amitriptyline 10mg daily at bedtime/8pm. May have also with anxiety. Potential side effects include but are not limited to fatigue, cardiac arrhythmias, mood changes. Note, patient would not prefer tablet versus sublingual administration of acute treatment. For spasticity: Continue pregabalin 25 mg p.o. t.i.d.. Will follow-up upon review of above and patient to follow-up in clinic in 6 months or sooner prn. Medications: New amitriptyline 10 mg PO BEDTIME 30 tabs 3RF 30 days ubrogepant (Ubrelvy) take at onset of migraine, may repeat in 2hrs (may take w/ Ibuprofen) 50 - 100 mg (0.5 - 1 x 100 mg) PO ONCE PRN 16 tabs 3RF migraine headache 30 days Coding Level of Care Code Est Pt Level 4 (17059) Diagnoses Anoxic brain injury G93.1 Major neurocognitive disorder due to traumatic brain injury S06.9X9S; F02.80 Migraine without aura G43.009 Recurrent major depressive disorder, in partial remission F33.41 Depression Type: major depressive disorder Major depression recurrence: recurrent Active/Remission status: in partial remission
== END 2024-11-24 08:48 | disposition home or self-care (01) ==
LOC: HO.HSMS 07:44
PROVIDERS: PCP Physician Assistant; Visit Provider Nurse Practitioner Family
DX: G93.1 Anoxic brain damage, not elsewhere classified (principal); S06.9X9S Unspecified intracranial injury with loss of consciousness of unspecified duration, sequela; F02.80 Dementia in other diseases classified elsewhere, unspecified severity, without behavioral disturbance, psychotic disturbance, mood disturbance, and anxiety; G43.009 Migraine without aura, not intractable, without status migrainosus; F33.41 Major depressive disorder, recurrent, in partial remission
CPT/HCPCS: 99214

== ENCOUNTER → 2024-11-24 07:43 | Outpatient (BNVA) | payer OTHER, SELFPAY | PROVIDERS: PCP Physician Assistant; Visit Provider Nurse Practitioner Family | DX: F33.41 Major depressive disorder, recurrent, in partial remission (principal); G93.1 Anoxic brain damage, not elsewhere classified; F02.80 Dementia in other diseases classified elsewhere, unspecified severity, without behavioral disturbance, psychotic disturbance, mood disturbance, and anxiety; S06.9X9S Unspecified intracranial injury with loss of consciousness of unspecified duration, sequela; G43.009 Migraine without aura, not intractable, without status migrainosus | CPT/HCPCS: 99212 ==